=== PATIENT | male | born 1945 | race Caucasian/White ===

== ENCOUNTER 2020-06-04 08:31 | Outpatient (REF) | payer MEDICARE, SELFPAY ==
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
== END 2020-06-04 08:32 | disposition home or self-care (01) ==
LOC: HO.SH 08:31
PROVIDERS: Visit Provider Family Medicine
DX: H91.90 Unspecified hearing loss, unspecified ear (principal)
CPT/HCPCS: 92557; 92567

== ENCOUNTER 2023-06-14 06:26 | Day surgery (SDC) | payer MEDICARE, SELFPAY ==
[2023-06-12 15:57] VITALS: BMI 24.8
--- NOTE | 2023-06-13 09:04 | HO.ANESPROP2 ---
Documented by User: Dianne Medrano NP 06/13/23 14:10 HPI - Anesthesia Eval Consult details Narrative: 77yo M for Colonoscopy Follows cardiology at [facility] [place]. Last office visit 11/2022. Small PFO - Not seen on TTE, not bubble study. No indication for closure given age. Note states stroke was lacunar, not embolic [facility] Past Medical History Medical History PFO (patent foramen ovale) Elevated cholesterol HTN (hypertension) Surgical History Surgical History History of surgery on lower extremity Hx of oral surgery Hx of eye surgery H/O colonoscopy Social History Social History Are you a primary respiratory care faculty to a significant other at home: No Do you presently have visiting nurse or other home services: No Patient Tobacco Use Status: Never used Tobacco Use of substances other than those prescribed or required for medical reasons: No Have you been hit, kicked, punched, or otherwise hurt by someone within the past year? If so, by whom?: No Advance Directives Information Provided: Yes Advance Directives on File: No Nutrition Risks: Surgical patient >75years Poor oral hygiene: No Meds Allergies Allergy/AdvReac Type Severity Reaction Status Date / Time Sulfa (Sulfonamide Allergy Intermediate HIVES Verified 06/14/23 07:25 Antibiotics) [SULFA(SULFONAMIDE ANTIBIOTICS)] Home Medications ?Medication ?Instructions ?Recorded ?Confirmed ?Last Taken ?Type aspirin 81 mg tablet,delayed 81 mg PO QPM 06/12/23 06/14/23 06/10/23 History release atorvastatin 80 mg tablet 80 mg PO DAILY 06/12/23 06/12/23 Unknown History coenzyme Q10 100 mg capsule (Co 100 mg PO DAILY 06/12/23 06/12/23 Unknown History Q-10) lisinopril 10 mg tablet 10 mg PO DAILY 06/12/23 06/14/23 06/14/23 06:00 History vwpkyywanrje-ogyozulr-sykcwi tablet 1 tab PO DAILY 06/12/23 06/12/23 Unknown History Exam Height,Weight and Vital Signs: Height 5 ft 9 in Weight 76.204 kg Narrative Narrative: EKG 11/2022 NSR @ 71 Assessment and Plan Assessment Anesthesia Assessment: Chart Reviewed Documented by User: Elver Figueroa MD 06/14/23 07:49 PMFSH Past Medical History Medical History PFO (patent foramen ovale) Elevated cholesterol HTN (hypertension) Family History Family history of problems with anesthesia: No Surgical History Surgical History History of surgery on lower extremity Hx of oral surgery Hx of eye surgery H/O colonoscopy History of Problems with Anesthesia: No Social History Social History Are you a primary respiratory care faculty to a significant other at home: No Do you presently have visiting nurse or other home services: No Patient Tobacco Use Status: Never used Tobacco Use of substances other than those prescribed or required for medical reasons: No Have you been hit, kicked, punched, or otherwise hurt by someone within the past year? If so, by whom?: No Advance Directives Information Provided: Yes Advance Directives on File: No Nutrition Risks: Surgical patient >75years Poor oral hygiene: No Meds Allergies Allergy/AdvReac Type Severity Reaction Status Date / Time Sulfa (Sulfonamide Allergy Intermediate HIVES Verified 06/14/23 07:25 Antibiotics) [SULFA(SULFONAMIDE ANTIBIOTICS)] Home Medications ?Medication ?Instructions ?Recorded ?Confirmed ?Last Taken ?Type aspirin 81 mg tablet,delayed 81 mg PO QPM 06/12/23 06/14/23 06/10/23 History release atorvastatin 80 mg tablet 80 mg PO DAILY 06/12/23 06/12/23 Unknown History coenzyme Q10 100 mg capsule (Co 100 mg PO DAILY 06/12/23 06/12/23 Unknown History Q-10) lisinopril 10 mg tablet 10 mg PO DAILY 06/12/23 06/14/23 06/14/23 06:00 History biumshkekxra-fdmhwykr-ezriup tablet 1 tab PO DAILY 06/12/23 06/12/23 Unknown History Exam Airway Mallampati Class: II TM Dist: >3cm Neck ROM: Full Loose/Missing/Broken Teeth: No Heart: ok. Has PFO. Lungs: ok Assessment and Plan Assessment Anesthesia Assessment: Anesthesia Plan Discussed Final Anesthetic Review Family History of Problems with Anesthesia: No History of Problems with Anesthesia: No NPO: Yes ASA Class: III Final Preanesthetic Review: No Changes in Pt Med Stat, Meds/Allgs Chart Reviewed, Consent Obtained/Reviewed and Anes Risks/Benef Reviewed Patient Risk: Intermediate Procedure Risk: Low Anesthetic Plan Anesthetic Plan: GA and Agree w/ Assess. and Plan Disposition: Standard PACU
[2023-06-14 07:06] VITALS: BP 114/57; PULSE 70; RESP 18; TEMP 519.4; TEMP 966.9; O2SAT 97; BMI 25.0
[2023-06-14] MEDS: Lactated Ringers 1,000 ML 100 ML IVCONT (07:24)
--- NOTE | 2023-06-14 08:27 | P.BOP_ITS ---
Brief Operative Note Date of Service: 06/14/23 Pre-op diagnosis: Screening Post-op diagnosis: other (Polyps) Procedure: Colonoscopy to the cecum with bx/removal of polyps Surgeon: Reece Vargas MD Anesthesia: MAC Was an Health Care Recruiter used for this Procedure?: No Estimated blood loss (mL): 2.0 Pathology: other (A. Ascending colon polyp B. Transverse colon polyp) Condition: stable Disposition: PACU
[2023-06-14 08:28] VITALS: BP 108/54; PULSE 74; RESP 16; TEMP 36.4; O2SAT 96
[2023-06-14 08:43] VITALS: BP 110/59; PULSE 76; RESP 16; O2SAT 97
--- NOTE | 2023-06-14 08:50 | OP_ITS ---
DATE OF SERVICE: 06/14/2023 SURGEON: Reece Vargas MD INDICATIONS: The patient presents for evaluation of colorectal cancer screening. Full consent obtained from him for this, including risks of bleeding and perforation. PREOPERATIVE DIAGNOSIS: Colorectal cancer screening. POSTOPERATIVE DIAGNOSIS: Colorectal cancer screening, small colon polyps, diverticulosis, and internal hemorrhoids. PROCEDURE PERFORMED: ESTIMATED BLOOD LOSS: COMPLICATIONS: ANESTHESIA: Monitored anesthesia care. ASSISTANTS: SPECIMENS: PROCEDURE: Colonoscopy to cecum with biopsy removal of polyps. DESCRIPTION OF PROCEDURE: The patient was placed in the left lateral decubitus position. The digital rectal exam revealed no abnormalities. The Olympus video pediatric colonoscope was entered into the rectum and advanced easily to the cecum. Once in the cecum, I did identify normal-appearing cecal pouch with appendiceal orifice and a normal-appearing ileocecal valve. The entire cecum and ileocecal valve appeared normal. Scope was slowly withdrawn assessing all mucosal surfaces carefully. Preparation was excellent. In the proximal ascending colon was a flat less than 5 mm polyp, which was biopsied and completely removed with cold biopsy forceps. In the transverse colon was a flat 3 or 4 mm polyp, which was biopsied and completely removed with cold biopsy forceps. I did not visualize any other polyps, colitis, or angiodysplasia. There was a mild amount of sigmoid diverticulosis. In the rectum, scope was retroflexed visualizing internal hemorrhoids, but no other pathology. The rectal mucosa appeared normal. The scope was straightened and withdrawn from the patient. He tolerated the procedure well and was returned to the recovery area in stable condition. IMPRESSION: 1. Small colon polyps. 2. Diverticulosis. 3. Internal hemorrhoids. PLAN: The results of biopsies will be checked. Given these minimal findings and his age, I do not think he will need any further screening colonoscopies. He will otherwise see me on a p.r.n. basis. Reece Vargas MD RMW/LORAL / [phone]
[2023-06-14 08:56] VITALS: BP 114/58; PULSE 62; RESP 16; TEMP 36.2; O2SAT 97
== END 2023-06-14 10:29 | disposition home or self-care (01) ==
PROVIDERS: PCP Family Medicine; Visit Provider Internal Medicine
PROC: 0DJD8ZZ Inspection of Lower Intestinal Tract, Via Natural or Artificial Opening Endoscopic (ICD-10-PCS; CPT 45378; principal; 2023-06-14 07:30)
DX: Z12.11 Encounter for screening for malignant neoplasm of colon (principal); D12.2 Benign neoplasm of ascending colon; D12.3 Benign neoplasm of transverse colon; K57.30 Diverticulosis of large intestine without perforation or abscess without bleeding; K64.8 Other hemorrhoids; Z80.0 Family history of malignant neoplasm of digestive organs; I10 Essential (primary) hypertension; Z79.82 Long term (current) use of aspirin
CPT/HCPCS: 45380; 88305; J2704